=== PATIENT | male | born 1965 ===

== ENCOUNTER 2021-09-21 16:19 | Inpatient (IN) ==
[2021-09-21] MEDS ORDERED: Ondansetron 4 MG/2 ML VIAL IVP ONE (17:21)
[2021-09-21] MEDS ORDERED: 0.9 % Sodium Chloride 1,000 ML IVC ONE ×2 (17:21→19:03)
[2021-09-21] MEDS ORDERED: Isovue-370 500 ML BOTTLE IVP ONE (17:22)
[2021-09-21] MEDS ORDERED: Ketorolac 30 MG/ML VIAL IVP STA (17:23)
[2021-09-21 17:26] LABS: Basophils % 0.2 %; Hemoglobin 15.3 g/dL (12.9-16.9); Immature Granulocytes % 0.8 % (0-4); Lymphocytes # 1.4 K/mcL (0.6-4.6); Mean Corpuscular Hemoglobin 30.1 pg (28.0-33.3); Mean Corpuscular Volume 88.4 fL (83.0-100.0); Mean Platelet Volume 9.7 fL (9.4-12.4); Monocytes # 1.3 K/mcL (0.0-1.3); Monocytes % 8.9 %; Neutrophils # 11.5 K/mcL (1.6-8.9); Platelet Count 263 K/mcL (140-400); Red Blood Count 5.09 M/mcL (4.19-5.50); Red Cell Distribution Width 14.4 % (11.5-14.5); Segmented Neutrophils % 80.1 %; White Blood Count 14.4 K/mcL (4.3-11.1)
[2021-09-21 17:32] LABS: Bilirubin,Urine Negative (Negative); Blood,Urine Negative (Negative); Clarity,Urine Turbid (Clear); Color,Urine Yellow (Yellow); Glucose,Urine (UA) Normal (Normal); Hyaline Casts,Urine Many per lpf (None Seen); Ketones,Urine 10 mg/dL (Negative); Leukocyte Esterase,Urine Negative (Negative); Mucus,Urine Moderate per lpf (None-Few); Nitrite,Urine Negative (Negative); PH,Urine 5.5 pH Units (5.0-8.0); Protein,Urine 70 mg/dL (Neg-Trace); Specific Gravity,Urine 1.028 (1.010-1.025); Squamous Epithelial Cell,Urine Few per hpf (None-Few); Urobilinogen,Urine Normal (Normal)
[2021-09-21 18:02] LABS: Albumin 4.1 g/dL (3.5-5.7); Albumin/Globulin Ratio 1.4 (1.1-2.2); Bilirubin,Direct 0.6 mg/dL (0.0-0.2); Bilirubin,Indirect 1.2 mg/dL (0.0-1.0); Bilirubin,Total 1.8 mg/dL (0.3-1.0); Calcium 9.4 mg/dL (8.6-10.3); Potassium 5.3 mEq/L (3.5-5.1); Total Protein 7.1 g/dL (6.4-8.9); Troponin I 0.06 ng/mL (< 0.04)
[2021-09-21 18:32] LABS: Influenza A PCR Negative (Negative); Influenza B PCR Negative (Negative); Resp. Syncytial Virus PCR Negative (Negative)
[2021-09-21 18:35] LABS: SARS-CoV-2 by PCR (In House) Positive (Negative)
[2021-09-21] MEDS ORDERED: Albuterol 2.5 MG/3 ML NEBULIZER IH ONE (18:36)
[2021-09-21] MEDS ORDERED: cefTRIAXone 1,000 MG in Water for inj. (sterile) 10 ML IVP ONE (18:37)
[2021-09-21 19:54] LABS: Hepatitis B Surface Antigen Nonreactive (Nonreactive)
[2021-09-21] MEDS ORDERED: Naloxone 0.4 MG/ML INJ IVP PRN (19:56)
[2021-09-21] MEDS ORDERED: Melatonin 3 MG TABLET PO PRN (19:56)
[2021-09-21] MEDS ORDERED: 0.9 % Sodium Chloride 1,000 ML IVC SCH ×2 (20:00)
[2021-09-21] MEDS ORDERED: *HR* LORazepam 2 MG/ML VIAL IVP PRN ×2 (20:00)
[2021-09-21] MEDS ORDERED: Aspirin 325 MG TABLET PO ONE (20:09)
[2021-09-21 20:22] LABS: Hepatitis C Virus Antibody Nonreactive (Nonreactive)
[2021-09-21 20:24] LABS: Hepatitis A Antibody IgM Nonreactive (Nonreactive)
[2021-09-21 20:27] LABS: Acetaminophen < 10 mcg/mL (10-20); Ethanol < 10 mg/dL (Less than 10); Salicylate < 2.5 mg/dL (15.0-30.0)
[2021-09-21] MEDS ORDERED: Thiamine (B-1) 100 MG, Folic Acid 1 MG, MVI, adult with vitamin K 10 ML in 0.9 % Sodi... IVPB SCH (20:30)
[2021-09-21 20:39] LABS: Creatine Kinase 197 Units/L (30-223)
[2021-09-21 20:53] LABS: Thyroid Stimulating Hormone 5.132 mcIU/mL (0.340-5.600)
[2021-09-21] MEDS: Piperacillin/Tazobactam 3.375 GM in 0.9 % Sodium Chloride Mini Bag 100 ML IVPB SCH (22:21)
[2021-09-22] MEDS: *HR* Metoprolol 5 MG/5 ML VIAL IVP ONE ×2 (00:41→01:40)
[2021-09-22] MEDS ORDERED: *HR* Metoprolol 5 MG/5 ML VIAL IVP ONE (01:06)
[2021-09-22 01:55] LABS: Amphetamine Screen,Urine Negative ng/mL (Cutoff=1000); Barbiturate Screen,Urine Negative ng/mL (Cutoff=200); Benzodiazepines Screen,Urine Negative ng/mL (Cutoff=200); Cannabinoid Screen,Urine Positive ng/mL (Cutoff = 50); Cocaine Screen,Urine Negative ng/mL (Cutoff= 300); Opiate Screen,Urine Negative ng/mL (Cutoff=300); Phencyclidine Screen,Urine Negative ng/mL (Cutoff=25); Sodium, Urine 12.8 mEq/L
[2021-09-22] MEDS ORDERED: Perflutren Lipid Microsphere 1.3 ML in 0.9 % Sodium Chloride 8.7 ML IVP PRN (02:57)
[2021-09-22] MEDS: DilTIAZem 50 MG/50 ML IV.SOLN IVC SCH ×3 (03:31→22:37)
[2021-09-22 04:51] LABS: Basophils % 0.2 %; Hematocrit 44.7 % (37.5-50.1); Hemoglobin 14.9 g/dL (12.9-16.9); Immature Granulocytes % 1.1 % (0-4); Lymphocytes # 0.7 K/mcL (0.6-4.6); Lymphocytes % 6.6 %; Mean Corpuscular HGB Conc 33.3 g/dL (31.6-35.5); Mean Corpuscular Hemoglobin 30.2 pg (28.0-33.3); Mean Corpuscular Volume 90.7 fL (83.0-100.0); Mean Platelet Volume 10.2 fL (9.4-12.4); Monocytes # 0.5 K/mcL (0.0-1.3); Monocytes % 5.4 %; Neutrophils # 8.6 K/mcL (1.6-8.9); Platelet Count 257 K/mcL (140-400); Red Blood Count 4.93 M/mcL (4.19-5.50); Red Cell Distribution Width 14.6 % (11.5-14.5); Segmented Neutrophils % 86.7 %; White Blood Count 9.9 K/mcL (4.3-11.1)
[2021-09-22] MEDS ORDERED: 0.9 % Sodium Chloride 1,000 ML IVC ONE (04:55)
[2021-09-22 05:31] LABS: Calcium 8.3 mg/dL (8.6-10.3)
[2021-09-22] MEDS ORDERED: *HR* Enoxaparin 100 MG/ML SYRINGE SQ SCH (06:00)
[2021-09-22] MEDS: Piperacillin/Tazobactam 3.375 GM in 0.9 % Sodium Chloride Mini Bag 100 ML IVPB SCH ×3 (06:15→21:03)
[2021-09-22 08:02] LABS: Estimated Average Glucose 114 mg/dl; Hemoglobin A1C 5.6 %
[2021-09-22 10:13] LABS: Creatinine,Urine 354 mg/dL; Protein/Creatinine Ratio,Urine 0.15 mg/mg (0.00-0.20)
[2021-09-22 13:41] LABS: VBG HCO3 12 mEq/L (21-27); VBG PCO2 31 mmHg (41-51); VBG PH 7.19 pH Units (7.32-7.42); VBG PO2 63 mmHg (25-50)
[2021-09-22] MEDS ORDERED: 0.9 % Sodium Chloride 1,000 ML IVC SCH (14:15)
[2021-09-22] MEDS: Sodium Bicarbonate 150 MEQ in D5% in Water 1,000 ML IVC SCH (15:44)
[2021-09-22 17:28] LABS: ABG Base Excess -12 mEq/L (-2 to 3); ABG HCO3 12 mEq/L (21-27); ABG Oxygen Saturation 96 % (95-98); ABG PCO2 21 mmHg (35-45); ABG PH 7.35 pH Units (7.32-7.45); ABG PO2 82 mmHg (85-104); ABG TCO2 12 mEq/L (20-26)
[2021-09-22] MEDS: Ondansetron 4 MG/2 ML VIAL IVP PRN (18:33)
[2021-09-22] MEDS: *HR* LORazepam 2 MG/ML VIAL IVP PRN (21:15)
[2021-09-23] MEDS: *HR* LORazepam 2 MG/ML VIAL IVP PRN (01:22)
[2021-09-23] MEDS: Piperacillin/Tazobactam 3.375 GM in 0.9 % Sodium Chloride Mini Bag 100 ML IVPB SCH ×2 (05:25→13:42)
[2021-09-23] MEDS ORDERED: *HR* Enoxaparin 40 MG/0.4 ML SYRINGE SQ SCH (06:00)
[2021-09-23] MEDS: Folic Acid 1 MG TABLET PO SCH ×3 (08:46→12:11)
[2021-09-23] MEDS: Aspirin 81 MG TAB.CHEW PO SCH ×3 (08:46→12:11)
[2021-09-23] MEDS: Thiamine (B-1) 100 MG TABLET PO SCH ×3 (08:46→12:11)
[2021-09-23] MEDS: Sodium Bicarbonate 150 MEQ in D5% in Water 1,000 ML IVC SCH (08:46)
[2021-09-23 09:47] LABS: Hemoglobin 14.3 g/dL (12.9-16.9); Lymphocytes # 1.1 K/mcL (0.6-4.6); Lymphocytes % 5.4 %; Mean Platelet Volume 10.8 fL (9.4-12.4); Nucleated Red Blood Cells 1.2 /100 WBC (0)
[2021-09-23 09:50] LABS: Basophils % 0.1 %; Hematocrit 42.5 % (37.5-50.1); Mean Corpuscular HGB Conc 33.6 g/dL (31.6-35.5); Mean Corpuscular Hemoglobin 29.7 pg (28.0-33.3); Mean Corpuscular Volume 88.4 fL (83.0-100.0); Monocytes # 1.5 K/mcL (0.0-1.3); Monocytes % 7.7 %; Neutrophils # 16.9 K/mcL (1.6-8.9); Platelet Count 184 K/mcL (140-400); Red Blood Count 4.81 M/mcL (4.19-5.50); Red Cell Distribution Width 15.2 % (11.5-14.5); Segmented Neutrophils % 85.8 %; White Blood Count 19.7 K/mcL (4.3-11.1)
[2021-09-23 10:00] LABS: VBG HCO3 15 mEq/L (21-27); VBG PCO2 30 mmHg (41-51); VBG PH 7.31 pH Units (7.32-7.42); VBG PO2 56 mmHg (25-50)
[2021-09-23 10:19] LABS: Troponin I 0.08 ng/mL (< 0.04)
[2021-09-23 10:35] LABS: Albumin 3.6 g/dL (3.5-5.7); Albumin/Globulin Ratio 1.4 (1.1-2.2); Bilirubin,Total 1.7 mg/dL (0.3-1.0); Calcium 7.6 mg/dL (8.6-10.3); Chol/HDL Ratio 9.1 (0-4.9); Globulin 2.5 g/dL (2.4-3.5); Phosphorous 6.4 mg/dL (2.7-4.5); Potassium 4.3 mEq/L (3.5-5.1); Total Protein 6.1 g/dL (6.4-8.9)
[2021-09-23] MEDS ORDERED: Metoprolol XL (24 HR) Succ 25 MG TAB.ER.24H PO SCH (11:45)
[2021-09-23 12:05] LABS: INR 2.5; Prothrombin Time 27.6 Seconds (9.4-12.1)
[2021-09-23] MEDS: Ondansetron 4 MG/2 ML VIAL IVP PRN (12:17)
[2021-09-23] MEDS ORDERED: *HR* Heparin 5,000 UNIT/ML VIAL IVP PRN ×2 (15:19)
[2021-09-23] MEDS ORDERED: *HR* Heparin 5,000 UNIT/ML VIAL IVP ONE (15:19)
[2021-09-23] MEDS ORDERED: *HR* Digoxin 0.5 MG/2 ML AMPUL IVP ONE (15:21)
[2021-09-23 15:30] VITALS: TEMP 98
[2021-09-23] MEDS ORDERED: Heparin 25,000UNIT/250ML 1/2NS 25,000 UNIT/250 ML IV.SOLN IVC SCH (15:30)
[2021-09-23 16:29] LABS: ABG Base Excess -9 mEq/L (-2 to 3); ABG HCO3 13 mEq/L (21-27); ABG Oxygen Saturation 97 % (95-98); ABG PCO2 20 mmHg (35-45); ABG PH 7.43 pH Units (7.32-7.45); ABG PO2 83 mmHg (85-104); ABG TCO2 14 mEq/L (20-26)
[2021-09-23] MEDS ORDERED: Norepinephrine 4 MG/254 ML IV.SOLN IVC SCH (16:30)
[2021-09-23 16:33] VITALS: O2SAT 95
[2021-09-23 16:45] VITALS: BP 105/84
[2021-09-23 16:51] VITALS: PULSE 117
[2021-09-23] MEDS ORDERED: Bumetanide 1 MG/4 ML VIAL IVP ONE (17:00)
[2021-09-23] MEDS ORDERED: *HR* Digoxin 0.5 MG/2 ML AMPUL IVP SCH (21:00)
[2021-09-24] MEDS ORDERED: Bumetanide 1 MG/4 ML VIAL IVP SCH (08:00)
== END 2021-09-23 19:47 | disposition short-term general hospital (02) | DRG 720 ==
LOC: EMEROOARM 16:19 → 3BNU 16:19 → SUATTDRO 19:53 → OBSVTOIN 19:53 → 3BNU 20:00 → 3NENU 22:18 → 2NNU 09-22 17:09 → 2NENU 09-23 14:04
PROVIDERS: ADMIT Internal Medicine; ATTEND Student in an Organized Health Care Education/Training Program